=== PATIENT | male | born 1945 | race Caucasian/White ===

== ENCOUNTER 2021-09-19 12:42 | Emergency (ER) | payer MEDICARE, OTHER, SELFPAY ==
[2021-09-19] VITALS (22 sets, daily range): BP systolic 117–153; BP diastolic 56–97; PULSE 56–95; RESP 7–27; TEMP 36.4; O2SAT 89–100
--- NOTE | ~2021-09-19 | XR_ITS ---
EXAMINATION: XR chest 1V DATE: 09/19/2021 13:23 INDICATION: Fall with hip fracture. TECHNIQUE: frontal view of the chest was obtained. COMPARISON: None FINDINGS: The lungs are clear with no focal airspace opacities, pulmonary edema, pleural effusion or pneumothor ax. The cardiomediastinal silhouette is normal. Cholecystectomy clips in right upper quadrant. Modera te thoracic and severe upper lumbar spondylosis. IMPRESSION: 1. No acute cardiopulmonary disease. Reviewed, dictated and finalized at location A. L PREPAREDNESS TRAINING OFFICER
--- NOTE | ~2021-09-19 | CT_ITS ---
EXAMINATION: CT brain wo con DATE: 09/19/2021 13:50 INDICATION: Anticoagulated patient post fall on ice with hip fracture. TECHNIQUE: Computed tomography (CT) of the head was performed without intravenous contrast. Sagittal and coronal reconstructions were performed. The mA was adjusted according to patient size. Iterative reconstruction technique was employed. The dose-length product was 494.29 mGy-cm. COMPARISON: None FINDINGS: No fracture. No acute intracranial hemorrhage, acute infarction or abnormal extra axial fluid collect ion. There is mild scattered white matter hypoattenuation consistent with chronic small vessel ischem ic disease. Symmetric prominence of the sulci consistent with mild age-appropriate diffuse cerebral v olume loss. Ventricles are normal and symmetric. No mass/mass effect. Changes of bilateral intraocula r lens replacement. The orbits, paranasal sinuses and mastoid air cells are normal. Small metallic cl ip in the soft tissues at the right malar region. IMPRESSION: 1. No fracture or acute intracranial process. 2. Age-related changes including mild diffuse volume loss and mild scattered white matter hypoattenua tion consistent with chronic small vessel ischemic disease. Reviewed, dictated and finalized at location A. ING OPERATOR IMPRESSION: 1. No fracture or acute intracranial process. 2. Age-related changes including mild diffuse volume loss and mild scattered wh ite matter hypoattenuation consistent with chronic small vessel ischemic diseas e.
--- NOTE | ~2021-09-19 | CT_ITS ---
EXAMINATION: CT cervical spine wo con DATE: 09/19/2021 13:50 INDICATION: Anticoagulated patient post fall on ice with hip fracture TECHNIQUE: Computed tomography (CT) of the cervical spine was performed without intravenous contrast. Automated exposure control and iterative reconstruction technique were employed. The dose-length pro duct was 494.29 mGy-cm. COMPARISON: None FINDINGS: 2 mm anterolisthesis C7 on T1. 1 mm anterolisthesis C4 on C5 and 1 mm retrolisthesis C5 on C6 and C6 on C7. Vertebral body heights are normal. No fracture. Severe disc height loss at C5-C6, C6-C7 and T1 -T2. Moderate disc height loss at C4-C5. Mild disc height loss at C3-C4 and C7-T1. Associated disc bu lges and disc osteophyte complexes result in multilevel mild central canal stenosis at multiple level s in the mid to lower cervical spine. Multilevel moderate to severe cervical uncovertebral and facet osteoarthritis contributing to mild neural from stenosis at multiple levels on both the left and righ t. Atherosclerotic calcification is at the bilateral carotid bulbs and along the dominant left verteb ral artery. Cervical soft tissues are otherwise unremarkable. Repeating pattern with subtle groundgla ss opacities and small amount of smooth septal line thickening at the apices, left greater than right , consistent with mild pulmonary edema. IMPRESSION: 1. Severe cervical spondylosis. No acute osseous abnormality. Reviewed, dictated and finalized at location A. T FORMULATOR
--- NOTE | ~2021-09-19 | XR_ITS ---
EXAMINATION: XR hip RT 2V w AP pelvis DATE: 09/19/2021 13:22 INDICATION: Right hip injury post fall TECHNIQUE: Anteroposterior view of the pelvis and anteroposterior and cross-table lateral views of th e right hip were obtained. COMPARISON: Radiographs dated 09/19/2021 FINDINGS: Sagittally oriented fracture intertrochanteric fracture the proximal right femur. The lesser trochant er remains contiguous with the right femoral head and neck. There is 25 degrees posterior angulation and 2 cm proximal migration. No other fractures identified. Bilateral hip joint spaces are normal. Mi ld bilateral sacral iliac osteoarthritis. Severe lumbar spondylosis. Multiple surgical clips in the p jc. IMPRESSION: 1. 25 degrees posterior angulation and 2 cm proximal migration of a sagittally oriented intratrochant catarino fracture of the proximal right femur. Reviewed, dictated and finalized at location A. TING PRESS OPERATOR IMPRESSION: 1. 25 degrees posterior angulation and 2 cm proximal migration of a sagittally oriented intratrochanteric fracture of the proximal right femur.
--- NOTE | 2021-09-19 13:41 | PC.NURSE ---
Pt's at bedside attempting to refuse CT scan. This nurse informed that due to the fact that her is on blood thinners this is necessary to rule out any internal bleeding. Pt is agreeable to having CT scan.
--- NOTE | 2021-09-19 13:42 | ECG_ITS ---
Measurements Intervals [place] Rate: 62 P: -71 UT: 193 QRS: -45 QRSD: 110 T: 24 QT: 428 QTc: 437 Interpretive Statements SINUS RHYTHM VENTRICULAR COUPLET AND VENTRICULAR PREMATURE COMPLEX LEFT AXIS DEVIATION BORDERLINE T WAVE ABNORMALITY- ANTERIOR LEADS BASELINE ARTIFACT- I, II, III, AVR, AVL, AVF, V1-V5 BORDERLINE ECG Electronically Signed On 09-19-2021 18:49:01 FILBERT GROWER by Ruslan Ascencio D.O.
[2021-09-19] MEDS: MORPHINE SULFATE (*CRX) 4 MG/ML INJ IV PUSH ×2 (14:03→15:27)
[2021-09-19] MEDS: ONDANSETRON INJ 4 MG/2 ML VIAL IV PUSH (14:03)
[2021-09-19 14:17] LABS: Basophils Percent Auto 0.2 % (0.2-1.2); Eosinophils Absolute Auto 0.1 K/mm3 (0-0.3); Eosinophils Percent Auto 0.8 % (0-4.4); Hematocrit 34.4 % (42.0-52.0); Hemoglobin 11.6 g/dL (14.0-18.0); Immature Granulocyte Absolute 0.07 K/mm3 (0.00-0.031); Immature Granulocyte Percent A 0.6 % (0-0.5); Lymphocytes Absolute Auto 0.62 K/mm3 (0.9-3.2); Lymphocytes Percent Auto 4.9 % (18.3-44.2); Mean Corpuscular HGB Conc 33.7 g/dl (32-36); Mean Corpuscular Hemoglobin 29.8 pg (26-34); Mean Corpuscular Volume 88.4 fl (80-100); Mean Platelet Volume 9.4 fl (7.4-10.4); Monocytes Absolute Auto 0.6 K/mm3 (0.1-0.6); Monocytes Percent Auto 4.6 % (2.6-8.5); Neutrophils Absolute Auto 11.1 K/mm3 (1.3-6.7); Neutrophils Percent Auto 88.9 % (45.5-73.1); Platelet Count Result 212 k/mm3 (150-375); Red Blood Count 3.89 M/mm3 (4.6-6.20); Red Cell Distribution Width 12.7 % (11.5-14.5); White Blood Count 12.5 K/mm3 (4.5-10.0)
--- NOTE | 2021-09-19 14:21 | ED.FALL ---
HPI - Fall General Chief Complaint: Fall Stated Complaint: glf Time Seen by Provider: 09/19/21 13:41 Source: patient History of Present Illness HPI Narrative: Patient presents after a fall. Patient reports he was walking in his driveway slipped on some ice and landed on his right hip he felt a pop and had immediate pain. Reports pain to his right hip that is sharp, constant, radiates down his leg denies any focal numbness or weakness. Denies striking his head denies any loss consciousness denies any other areas of pain such as headache, chest pain, abdominal pain. Denies any prodrome prior to the event. He called his family lives in the area who came to help him to a chair and EMS was called. Patient was brought to the ER for evaluation. Related Data Home Medications Medication Instructions Recorded Confirmed amlodipine 5 mg DAILY 09/19/21 apixaban [Eliquis] 5 mg BID 09/19/21 atorvastatin 80 mg DAILY 09/19/21 clopidogrel 75 mg DAILY 09/19/21 furosemide 20 mg DAILY 09/19/21 metoprolol succinate 50 mg PO DAILY 09/19/21 Allergies Allergy/AdvReac Type Severity Reaction Status Date / Time No Known Allergies Allergy Verified 09/19/21 13:27 Review of Systems Review of Systems: CONSTITUTIONAL: Denies fever, chills, or sweats. EYES: Denies visual changes, redness, or discharge. ENT: Denies rhinorrhea, congestion, sore throat, or otalgia. CARDIOVASCULAR: Denies chest pain, palpitations, or edema. RESPIRATORY: Denies cough or dyspnea. GASTROINTESTINAL: Denies abdominal pain, nausea, vomiting, or diarrhea. GENITOURINARY: Denies dysuria or hematuria. SKIN: Denies rash or itching. MUSCULOSKELETAL: Denies back pain, or myalgia. NEUROLOGIC: Denies headache, numbness, dizziness, or weakness. PSYCHIATRIC: Denies anxiety or depression. All systems reviewed & are unremarkable except as noted in HPI and below PMFSH Past Medical History Medical History (Updated 09/19/21 @ 14:25 by Izaiah Pinedo MD) Colon cancer Colostomy in place Prostate cancer Social History Social History (Updated 09/19/21 @ 14:23 by Izaiah Pinedo MD) Living arrangements: with family Exam Narrative: GENERAL: Well-appearing, well-nourished, and in no acute distress. HEAD: Normocephalic, atraumatic. EYES: PERRLA and EOMI. ENT: Nares clear, no rhinorrhea or epistaxis. Mucous membranes moist. NECK: Supple. No masses. No JVD CHEST: Clear to auscultation. No respiratory distress. No wheezes rales or rhonchi HEART: Regular rate and rhythm. No murmur heard. Normal peripheral pulses. ABDOMEN: Soft, nontender, nondistended, normal active bowel sounds. EXTREMITIES: Tenderness palpation on the right hip right lower extremity is shortened patient has sensation and strength intact in the right lower distal extremity with 2+ DP pulses SKIN: Warm, dry, no rash. NEURO: No focal deficits. Alert and oriented x3. PSYCH: Normal mood and affect. Course Reevaluation(s) Reevaluation #1: Labs and imaging reivwed with the patient, he remains comfortable with the transfer plan. Date: 09/19/21 Time: 14:53 Vital Signs Vital signs: Vital Signs Temperature 36.4 C L 09/19/21 12:57 Pulse Rate 95 09/19/21 12:57 Respiratory Rate 17 09/19/21 12:57 Blood Pressure 153/97 H 09/19/21 12:57 Pulse Oximetry 99 09/19/21 12:57 Temperature 36.4 C L 09/19/21 12:57 Pulse Rate 72 09/19/21 16:54 Respiratory Rate 16 09/19/21 16:54 Blood Pressure 135/58 L 09/19/21 16:54 Pulse Oximetry 98 09/19/21 16:54 Transfer Transfered to: [facility] - Fall MDM Narrative Medical decision making narrative: Patient presented after a mechanical fall and had right hip pain exam notable for shortened right lower extremity however neurological exam was intact. Imaging and labs obtained. Imaging is notable for isolated right intertrochanteric fracture, again distal extremity appears to be neurovascularly intact. Patient has a history of mu
[2021-09-19 14:28] LABS: INR 1.1; Prothrombin Time 14.2 Seconds (11.1-14.7)
[2021-09-19 14:29] LABS: Partial Thromboplastin Time 47.1 SECONDS (22.3-36.8)
[2021-09-19 14:38] LABS: Alanine Aminotransferase 19 U/L (4-50); Alkaline Phosphatase 135 U/L (38-126); Anion Gap 8 mmol/L (8-16); Aspartate Amino Transferase 29 U/L (17-59); Bilirubin,Total 0.3 mg/dL (0.2-1.3); Blood Urea Nitrogen 18 mg/dL (9-20); Calcium 9.1 mg/dL (8.4-10.2); Carbon Dioxide 26 mmol/L (22-30); Chloride 100 mmol/L (98-107); Estimated CRCL calculation 64 ml/min; Estimated Glomerular Filt Rate > 60; Glucose 160 mg/dL (65-110); Potassium 3.8 mmol/L (3.4-5.0); Sodium 134 mmol/L (137-145)
== END 2021-09-19 16:55 | disposition short-term general hospital (02) ==
PROVIDERS: Emergency Provider Emergency Medicine
DX: S72.141A Displaced intertrochanteric fracture of right femur, initial encounter for closed fracture (principal); Z85.038 Personal history of other malignant neoplasm of large intestine; Z93.3 Colostomy status; Z85.46 Personal history of malignant neoplasm of prostate; Z79.01 Long term (current) use of anticoagulants; M47.812 Spondylosis without myelopathy or radiculopathy, cervical region; R00.8 Other abnormalities of heart beat; R94.31 Abnormal electrocardiogram [ECG] [EKG]; W00.0XXA Fall on same level due to ice and snow, initial encounter
CPT/HCPCS: 36415; 70450; 71045; 72125; 73502; 80053; 85025; 85610; 85730; 93005; 96374; 96375; 96376; 99285; J2270; J2405

== ENCOUNTER 2022-01-04 07:30 | Outpatient (RCR) | payer MEDICARE, OTHER, SELFPAY ==
--- NOTE | 2021-11-12 10:11 | PTOPEVAL ---
PHYSICAL THERAPY INITIAL EVALUATION. Thank you for referring Kumar Hubbrad to [facility].? The patient is scheduled to be seen for therapy? 2x/week for 4 weeks. Please review, sign, date and return this plan of care JOSUE. I agree with and certify that the following plan of care is medically necessary. Referring Physician Date Attending Provider: Leela Franco *PT Outpatient Evaluation Start: 11/12/21 Evaluation Information Diagnosis closed intertrochanteric right hip fracture Onset 09/19/21 Subjective Information Pt states he fell on the ice Query Text:As Reported By Patient/ and broke his hip on 09/19/21 Family and had surgery the next day to repair it. Pt states he was admitted to [facility] for 5 days , and went to [facility] for 2 weeks. Pt states prior to his fall he was walking 30 mins a day, golfing, and doing basic exercises. Pt states he goes in and out of atrial fibrillation often, but cannot tell when, this increases his shortness of breath. Pain Assessment Right Hip(s) Reported Pain Level 0 Pain Description Soreness Greatest Pain Intensity 4 Pain Aggravating Factors Prolonged Position,Sitting Lower Extremity Range of Motion Gross Lower Extremity Range of Motion L hip flexion 125 deg Comments R hip flexion 110 deg Lower Extremity Muscle Strength Testing Gross Lower Extremity Strength B knee flexion/ext 4+/5 B ankle df/pf 4+/5 Hip Strength Right Hip Flexion Strength 4 Good Hip Extension Strength 3 Fair Hip Abduction Strength 2 Poor Left Hip Flexion Strength 4+ Good + Hip Extension Strength 4- Good - Hip Abduction Strength 3+ Fair + Balance Assessment Time Up Go (TUG) Timed Up and Go Test (TUG) (Seconds) 13 Assistive Devices None 5 Time Sit to Stand Time in Seconds 22 5 Time Sit to Stand Comments Without the use of UEs Gait Assessment Gait Pattern Trendelenburg Gait Gait Pattern Observed Trunk Lateral Lean - Right Other Gait Observations Decreased stance phase on the R, moderate lateral trunk lean to the R 2 Minute Walk Total Distance Walked (feet) 315 2 Minute Walk Gait Speed Score (feet/sec 2.62 Stair Climbing Assessment Technique Alternating Steps Stair Climbing Direction
--- NOTE | 2021-11-19 10:21 | PCPTNOTE ---
Patient called & cancelled scheduled appointment this date due to having a bad cough.
--- NOTE | 2021-12-02 15:42 | PCPTNOTE ---
Patient called & cancelled scheduled appointment on December 01, due to scheduling conflict.
--- NOTE | 2021-12-10 09:50 | PTOPEVAL ---
PHYSICAL THERAPY PROGRESS REPORT. Thank you for referring Kumar Hubbard to [facility].? The patient is scheduled to be seen for therapy? 2x/week for 4 weeks. Please review, sign, date and return this plan of care JOSUE. I agree with and certify that the following plan of care is medically necessary. Referring Physician Date Attending Provider: Leela Franco Evaluation Information Diagnosis closed intertrochanteric right hip fracture Onset 09/19/21 Subjective Information Pt states he is doing well. He Query Text:As Reported By Patient/ states his balance is still Family decreased from where it used to be. He did yard work yesterday, he has increased soreness today after that. He states he still feels himself favoring the right side. Pain Assessment Right Hip(s) Reported Pain Level 0 Pain Description Soreness Greatest Pain Intensity 3 Lower Extremity Range of Motion Gross Lower Extremity Range of Motion L hip flexion 125 deg Comments R hip flexion 120 deg Lower Extremity Muscle Strength Testing Gross Lower Extremity Strength B knee flexion/ext 4+/5 B ankle df/pf 4+/5 Hip Strength Right Hip Flexion Strength 4+ Good + Hip Extension Strength 3 Fair Hip Abduction Strength 3 Fair Left Hip Flexion Strength 4+ Good + Hip Extension Strength 4- Good - Hip Abduction Strength 3+ Fair + Muscle Length Testing Muscle Length Testing Left Hamstring Length -38 Right Hamstring Length -30 Balance Assessment Timed Up and Go Test (TUG) (Seconds) 13 Assistive Devices None Comments Initially: 13s 12/10/21: 13s 5 Time Sit to Stand Time in Seconds 15 5 Time Sit to Stand Comments Initially: 22s Without the use Query Text:Normative Data: If Greater of UEs Than 15 Seconds, 74% Increase Risk for 12/10/21: 15s without the use Recurrent Falls of UEs Gait Assessment Gait Pattern Trendelenburg Gait Gait Pattern Observed Trunk Lateral Lean - Right Other Gait Observations Decreased stance phase on the R, moderate lateral and posterior trunk lean to the R 2 Minute Walk Total Distance Walked (feet) 460 2 Minute Walk Gait Speed Score (feet/ 3.83 2 Minute Walk Test Comments Initially: 315ft (2.62ft/sec) 12/10/21: 460ft (3.83ft/sec) Stair Climbing Assessment Stair Climbing Comments decreased eccentric control
--- NOTE | 2022-01-14 17:03 | PCPTNOTE ---
Patient did not show up for scheduled appointment this date. Attempted to call patient to follow up 3 times. Each time the phone rang once and then disconnected. If we do not hear from the patient in 2 weeks they will be discharged from skilled physical therapy services.
--- NOTE | 2022-01-19 10:15 | PCPTNOTE ---
PHYSICAL THERAPY DISCHARGE SUMMARY Attending Provider: Leela Franco Patient:Kumar Hubbard Date of :1945 Patient called today and cancelled his re-evaluation this date. He states he had a doctors appointment yesterday and he and his doctor determined his priorty should be cardiac rehab at this point, therefore he will be discharged at this time. Patient?s initial visit was on 11/12/2021 and he had a total of 15 visits. The goals have been partially met. Thank you for referring this patient to [facility]. Please review, sign, date and return this discharge summary JOSUE. I have been updated about the patient's current status and I agree with discharge from the above service at this time. Referring Physician Date
== END 2022-01-19 14:35 | disposition home or self-care (01) ==
LOC: ANHPT 07:30
DX: S72.141A Displaced intertrochanteric fracture of right femur, initial encounter for closed fracture (principal)
CPT/HCPCS: 97110; 97112; 97161; 97530

== ENCOUNTER 2022-11-30 13:00 | Outpatient (RCR) | payer MEDICARE, OTHER, SELFPAY ==
--- NOTE | 2022-10-05 10:29 | PTOPEVAL1 ---
Assessment and note entered by Francy Kelly, DPDiamante Evaluation Information Assessment Status Evaluation Subjective Information Pt reports he broke his right hip a year ago, had a joselito placed. Original fracture was due to a fall on the ice. Came to therapy and felt that things were going well. States he started having issues again, was told by surgeon that there was something with the muscle that hadn't done what it was supposed to do as far as healing over the nail. Was given a cortisone injection and sent to therapy. Has improved a little but highest pain in last week 12/08 and lowest 08/10. Stiffness in the morning, notes decreased endurance as well and has not been doing as much exercise. Needs to use a cart at the grocery store, feels pain with walking but is able to do. Also reports more difficulty with stairs, tries to alternate but often has to put both on each step. Has not fallen but reports his balance has gotten worse, feels off balance . Also reports some L pain that has developed as a result of his R hip issues. Previously had been having less pain and difficulty with walking activities. Also has cardiac issues- history of 6 stents, heart attack, has done cardiac rehab in the past. 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 States he takes a lot of heart related medicine. Reported Pain Level Pain Score 0: Self Report Assessment PT Clinical Summary The patient is presenting to skilled therapy with a recent exacerbation of right hip pain and weakness following a femur fracture in 2021. He presents with decreased lower extremity strength and balance, gait, and stair impairments which are contributing to his pain and difficulty with activities like walking in a store without a cart. He will benefit from therapy to address these impairments and safely reduce pain and dysfunction . Plan of Care Interventions Electrical Stimulation,Gait Training,Hot Pack/Cold Pack,Manual Therapy,Neuro Re-education,Patient/ Caregiver Education,Therapeutic Activities, Therapeutic Exercise,Self-Care/Home Management PT Services Indicated Yes Treatment Frequency and 2 times a week for 4 weeks Duration These treatments will address the objective and functional deficits as defined above. The patient will be advanced safely and appropriately in order for the patient to progress towards his/her prior level of function. Additional exercises
--- NOTE | 2022-11-01 15:12 | PTOPPROG ---
Assessment and note entered by Shira Zee, PT Evaluation Information Assessment Status Progress Diagnosis closed fracture R femur Subjective Information Lux reports: the shoe lift in his R shoe helps his walking; is doing the exercises at home; feels like balance is still not good; has not had any falls; on the stairs, he can do them, but slower and holds onto the railing--is not bothered by them; can do everything that need to do at home, but have yardwork done by someone; wants to get back to playing golf; wants to keep coming for more therapy to work on his balance. pain range of past week 0-5/10 R lateral / posterior hip; take tylenol; pain increase with walking 45-60 min then pain 5/10; Assessment PT Clinical Summary Lux has received 9 PT sessions. Compared to the initial evaluation: pain rating at the worst is the same at 5/10 and least has decreased from 1 to 0/10; states he is able to go up/down his stairs without any issues, and has not had any falls; strength of his legs has increased slightly, but still has weakness over hip abduction and hip extension motions; he can perform sit/stand without use of UE's, but not able to maintain single leg standing position for more than 2 seconds; Al balance score is 47/56 ; 2 minute walking test distance has decreased by 10'; He has been educated on a home exercise program. He has poor standing position of his trunk and back, hips, with reports of chronic back pain. And reports he feels unsteady with walking. The goals were partially met. Continue PT treatment to further increase LE and trunk strength, gait and balance skills, to improve his mobility and for him to safely return to golfing and community mobility. Plan of Care Interventions Gait Training,Neuro Re-education,Patient/Caregiver Education,Therapeutic Activities,Therapeutic Exercise PT Services Indicated Yes Treatment Frequency and 2x/wk for 4 weeks Duration These treatments will address the objective and functional deficits as defined above. The patient will be advanced safely and appropriately in order for the patient to progress towards his/her prior level of function. Additional exercises will be introduced and as well as a comprehensive home exercise program upon discharge, if needed, ?to ensure
--- NOTE | 2022-11-30 13:46 | PTOPDC ---
Assessment and note entered by Shira Zee, PT Evaluation Information Assessment Status Discharge Diagnosis closed fracture R femur Subjective Information Lux reports: have improved slightly; doing the exercises at home, balance is better; want to get back to golfing now that the weather is nice; have not been golfing yet; agrees to d/c from PT; Reported Pain Level Pain Score 2: Self Report Assessment PT Clinical Summary Lux has received 17 PT sessions. Compared to last reevaluation: improved with: R and L hip strength-- with single leg standing time and mat exercises, Al balance by 3 points; performed simulated golf swing without loss of balance; Education has been completed for HEP and continue to gradually increase activity level with golfing and community activities. The goals were partially met. Discharge from PT services. Plan of Care PT Services Indicated No
== END 2022-12-20 08:48 | disposition home or self-care (01) ==
LOC: ANHPT 13:00
DX: S72.91XD Unspecified fracture of right femur, subsequent encounter for closed fracture with routine healing (principal)
CPT/HCPCS: 97110; 97112; 97161; 97530